=== PATIENT | female | born 1990 | race Two or more races ===

== ENCOUNTER 2023-06-20 23:38 | Emergency (ER) | payer SELFPAY ==
[~2023-06-20] VITALS: Ht 170.2 cm; Wt 59.1 kg
[2023-06-21 00:20] VITALS: BP 131/83; PULSE 71; RESP 14; O2SAT 100
== END 2023-06-21 02:55 | disposition left against medical advice (07) ==
LOC: ER 23:38
DX: M54.9 Dorsalgia, unspecified (principal); Z53.21 Procedure and treatment not carried out due to patient leaving prior to being seen by health care provider